=== PATIENT | male | born 1970 ===

== ENCOUNTER → 2018-12-01 13:17 | Outpatient (REF) | payer OTHER, SELFPAY ==
[2018-12-01 14:36] LABS: Free T3, Triiodothyronine Free 4.42 pg/mL (2.77-5.27); Free T4, Direct Thyroxine 1.49 ng/dL (0.78-2.19)
== END ==
LOC: LAB 13:17
PROVIDERS: Visit Provider Family Medicine
DX: E03.9 Hypothyroidism, unspecified (principal)
CPT/HCPCS: 36415; 84439; 84443; 84481